=== PATIENT | male | born 1990 | race Two or more races ===

== ENCOUNTER 2023-12-14 12:32 | Emergency (ER) | payer OTHER ==
[~2023-12-14] VITALS: Ht 172.7 cm; Wt 68.0 kg
[2023-12-14] MEDS ORDERED: KETOROLAC TROMETHAMINE 60 MG VIAL IM ONE ×2 (13:45→15:04)
[2023-12-14] MEDS ORDERED: CEFTRIAXONE SODIUM 2,000 MG VIAL IM ONE (13:45)
[2023-12-14] MEDS ORDERED: CEFTRIAXONE SODIUM 2,000 MG VIAL ONE (15:04)
[2023-12-14] MEDS ORDERED: LIDOCAINE HCL 1% 10ML VIAL ONE (15:10)
[2023-12-14 16:51] LABS: HEMATOCRIT 44.7 % (39.0-48.0); HEMOGLOBIN 15.3 g/dL (13-16.00); MEAN CELL VOLUME 91.5 fL (80.0-100.00); MEAN CORPUSCULAR HEMOGLOBIN 31.4 pg (27.00-32.0); MEAN CORPUSCULAR HGB CONC 34.3 g/dl (32.0-36.0); PLATELET COUNT 225 K/uL (150-450); RED BLOOD COUNT 4.88 M/uL (4.00-6.00); RED CELL DISTRIBUTION WIDTH 12.3 % (11.5-14.5)
[2023-12-14 16:54] LABS: URINE APPEARANCE Clear; URINE BILIRRUBIN Negative (NEGATIVE); URINE BLOOD Negative; URINE COLOR Yellow; URINE GLUCOSE Negative (NEGATIVE); URINE KETONE Negative (NEGATIVE); URINE LEUKOCYTE Negative; URINE NITRATE Negative; URINE PROTEIN Negative (NEGATIVE); URINE UROBILINOGEN 0.2 E.U./dl
[2023-12-14 16:57] LABS: URINE BACTERIA 7.5 uL (0.0-1933)
[2023-12-14 17:03] LABS: URINE WBC 0.9 uL (0.0-23.2)
[2023-12-14 17:09] LABS: ALBUMIN 4.5 gm/dL (3.4-5.0); BILIRUBIN TOTAL 0.41 mg/dL (0.3-1.2); CALCIUM 9.8 mg/dL (8.5-10.1); CREATININE SERUM 0.92 mg/dL (0.70-1.30); GFR 94.75; GLOBULINA 3.7 G/DL (2.4-3.5); POTASSIUM 4.06 mEq/L (3.5-5.1); TOTAL PROTEIN 8.2 gm/dL (6.4-8.2)
== END 2023-12-14 17:48 | disposition home or self-care (01) ==
LOC: ER 12:34
PROVIDERS: General Practice
DX: N50.811 Right testicular pain (principal)